=== PATIENT | male | born 1985 | race African-American/Black ===

== ENCOUNTER 2017-04-21 19:39 | Emergency (ER) | payer BC ==
[2017-04-21 19:49] VITALS: BP 130/77
[2017-04-21] MEDS ORDERED: DIAZEPAM INJ 10 MG/2 ML DISP.SYRIN IM ONE (20:37)
--- NOTE | 2017-04-21 20:40 | ER Document Report ---
HPI - HPI Patient complains to provider of: lower back pain Pain Level: 4 Context: Patient is a 31-year-old male comes emergency department for chief complaint of lower back pain, symptoms started yesterday, he states he woke up with pain, he denies any injury, he states that it feels tight across his back and it is worse with sitting and position changes along with twisting motions. He denies history of the same. He denies loss of bowel or bladder functioning, denies numbness, denies fever, denies history of IV drug abuse, he denies any daily medications or known medical problems. - DERM Skin Color: Normal, [place] Past Medical History - General Information source: Patient - Social History Smoking Status: Former Smoker Chew tobacco use (# tins/day): No Frequency of alcohol use: None Drug Abuse: None Lives with: Family Family History: Reviewed & Not Pertinent Patient has suicidal ideation: No Patient has homicidal ideation: No - Medical History Medical History: Negative Renal/ Medical History: Denies: Hx Peritoneal Dialysis Surgical Hx: Negative - Immunizations Hx Diphtheria, Pertussis, Tetanus Vaccination: Yes Vertical Provider Document - CONSTITUTIONAL General Appearance: WD/WN, No Apparent Distress, Other - Patient appears uncomfortable with position changes and twisting but otherwise is well-appearing - INFECTION CONTROL TRAVEL OUTSIDE OF THE [place] IN LAST 30 DAYS: No - HEENT HEENT: Atraumatic, Normocephalic - NECK Neck: Normal Inspection - RESPIRATORY Respiratory: Breath Sounds Normal, No Respiratory Distress O2 Sat by Pulse Oximetry: 96 - CARDIOVASCULAR Cardiovascular: Regular Rate, Regular Rhythm - GI/ABDOMEN Gastrointestinal: Abdomen Soft, Abdomen Non-Tender - BACK Back: negative: Normal Inspection - Tender over the left paraspinal musculature at the lumbar area, no midline tenderness, no saddle anesthesia, full range of motion of all extremities, normal distal neurovascular exam - MUSCULOSKELETAL/EXTREMETIES Musculoskeletal/Extremeties: MAEW, FROM, Non-Tender Course - Re-evaluation Re-evalutation: Patient with palpable tenderness over the left paralumbar musculature mainly, also slightly on the right, no concerning findings on exam, no neurological deficits, no concerning reported symptoms. Patient will be treated for musculoskeletal source of the symptoms, discussed follow-up, discussed return precautions. Patient states understanding and agreement. - Vital Signs Vital signs: Temp Pulse Resp BP Pulse Ox 98.6 F 81 18 130/77 H 96 04/21/17 19:48 04/21/17 19:48 04/21/17 19:48 04/21/17 19:48 04/21/17 19:48 Discharge - Discharge Clinical Impression: Lower back pain Qualifiers: Chronicity: acute Back pain laterality: left Sciatica presence: without sciatica Qualified Code(s): M54.5 - Low back pain Condition: Stable Disposition: HOME, SELF-CARE Additional Instructions: Exam is consistent with lower back lumbar muscular strain and spasm. Rest, avoid lifting/twisting until symptoms resolve, apply heat to the area, take prescribed medications. Follow up with primary care. Return for any concerning symptoms - numbness, loss of control of bowel or bladder, fever, or any other concerning symptoms. Prescriptions: Methocarbamol [Robaxin 750 mg Tablet] 750 mg PO Q6 #20 tablet Naproxen 500 mg PO BID #20 tablet Forms: Return to Work
== END 2017-04-21 21:06 | disposition home or self-care (01) ==
LOC: ER 19:39
DX: M54.5 Low back pain (principal); Z87.891 Personal history of nicotine dependence
CPT/HCPCS: 99283; 96372; J3360